=== PATIENT | male | born 2005 | race African-American/Black ===

== ENCOUNTER 2023-02-18 18:08 | Emergency (ER) | payer MEDICAID, SELFPAY ==
[2023-02-18] VITALS (11 sets, daily range): BP systolic 128–196; BP diastolic 57–100; PULSE 87–156; RESP 18–34; O2SAT 98–100
--- NOTE | 2023-02-18 | ECG_ITS ---
Measurements Intervals [place] Rate: 95 P: 60 ID: [id number] QRS: 70 QRSD: 91 T: 75 QT: 341 QTc: 430 Interpretive Statements SINUS RHYTHM NORMAL ECG NO PREVIOUS ECG AVAILABLE FOR COMPARISON Electronically Signed On 02-19-2023 6:24:55 CDT by Tank Sanchez D.O.
--- NOTE | ~2023-02-18 | CT_ITS ---
EXAMINATION: CT brain wo con DATE: 02/18/2023 19:05 INDICATION: Seizure. TECHNIQUE: Computed tomography (CT) of the head was performed without intravenous contrast. The mA wa s adjusted according to patient size. Iterative reconstruction technique was employed. The dose-lengt h product was 605.33 mGy-cm. COMPARISON: None FINDINGS: There is no intracranial hemorrhage, acute infarction, or abnormal intracranial mass lesion . The ventricles are normal in size. The orbits are normal. The paranasal sinuses are clear. The mast oid air cells are normal. There is cerumen in right external auditory canal. IMPRESSION: 1. Normal brain. Reviewed, dictated and finalized at location E. IMPRESSION: 1. Normal brain.
--- NOTE | ~2023-02-18 | XR_ITS ---
EXAMINATION: XR chest 1V DATE: 02/18/2023 19:06 INDICATION: Seizure. TECHNIQUE: A single frontal view of the chest was obtained. COMPARISON: None. FINDINGS: There is no pneumonia, pleural effusion, or pneumothorax. The heart size is normal. IMPRESSION: 1. No acute cardiopulmonary disease. Reviewed, dictated and finalized at location E.
--- NOTE | 2023-02-18 18:06 | ED.SEIZURE ---
HPI - Seizure General Chief Complaint: Seizure Stated Complaint: Seizure History of Present Illness HPI Narrative: Patient is a 17-year-old male presenting after a seizure. According to EMS he was with a friend when he had a jerking movement in his arms. At the time EMS arrived, this had resolved but he remained confused. He was able to answer a few questions. Shortly before arriving to the hospital he again had a seizure. They state it was generalized tonic-clonic. They gave him 2 mg of IV Versed which aborted the seizure. On arrival, the patient remains postictal. Airway is patent. Further history limited secondary to mental status. Related Data Allergies Allergy/AdvReac Type Severity Reaction Status Date / Time No Known Allergies Allergy Verified 02/18/23 18:51 Review of Systems Review of Systems: All systems reviewed & are unremarkable except as noted in HPI and below Exam Narrative: GENERAL: Unresponsive, protecting his airway HEAD: Normocephalic, atraumatic. EYES: PERRLA ENT: Nares clear, no rhinorrhea or epistaxis. Mucous membranes moist. NECK: Supple. CHEST: Clear to auscultation. No respiratory distress. HEART: tachycardic, regular rhythm ABDOMEN: Soft, nontender, nondistended EXTREMITIES: Normal range of motion. No edema. SKIN: Warm, dry, no rash. NEURO: Unresponsive, moving all extremities spontaneously, restless PSYCH: Unable to assess Course Vital Signs Vital signs: Vital Signs Pulse Rate 156 H 02/18/23 17:58 Respiratory Rate 34 H 02/18/23 17:58 Blood Pressure 196/100 H 02/18/23 17:58 Pulse Oximetry 100 02/18/23 17:58 Oxygen Delivery Room Air 02/18/23 17:58 Pulse Rate 95 02/18/23 22:17 Respiratory Rate 18 02/18/23 22:17 Blood Pressure 128/57 L 02/18/23 21:46 Pulse Oximetry 100 02/18/23 22:01 Oxygen Delivery Room Air 02/18/23 18:06 MDM - Seizure MDM Narrative Medical decision making narrative: Patient is a 17-year-old male presenting after a seizure. Patient initially tachycardic and hypertensive, this improved following fluids. Exam remarkable for the above. EKG per my interpretation shows normal sinus rhythm, no ST elevations or depressions. CT brain without acute abnormalities. Blood work with leukocytosis that I suspect is reactive, he denies any infectious symptoms. Electrolytes are normal but he does have an elevation in his creatinine. Fluids are ongoing. Spoke with [facility] neurologist Dr. Romero who recommends loading the patient with Keppra. Advises seizure precautions and outpatient follow-up with neurology. Discussed with the patient and his mother that he cannot drive until he follows up. Advised that he try to increase his fluid intake as he is very dry on his labs. He is receiving his second liter right now. He has returned to baseline and he denies any complaints at this time. Patient and his family are comfortable with this plan. Also advised that he follow-up with his PCP. Appropriate return precautions given. Discharged in stable condition. Differential Diagnosis Differential diagnosis: Likely focal seizure, generalized seizure and new onset seizure Medical Records Attestation: I reviewed the patient's medical records. Lab Data Attestation: I reviewed the patient's lab results. 02/18/23 18:50 02/18/23 18:50 Labs: Lab Results 02/18/23 02/18/23 Range/Units 18:50 20:16 WBC 20.7 H (4.5-10.0) K/mm3 RBC 5.95 (4.6-6.20) M/mm3 Hgb 16.5 (14.0-18.0) g/dL Hct 55.1 H (42.0-52.0) % MCV 92.6 (80-100) fl MCH 27.7 (26-34) pg MCHC 29.9 L (32-36) g/dl RDW 13.1 (11.5-14.5) % Plt Count 390 H (150-375) k/mm3 MPV 10.2 (7.4-10.4) fl Immature Gran % (Auto) Not Reportable Neut % (Auto) Not Reportable Lymph % (Auto) Not Reportable [place] % (Auto) Not Reportable Eos % (Auto) Not Reportable Baso % (Auto) Not Reportable Lymph # (Auto) Not Reporta
[2023-02-18] MEDS: LORazepam INJ (*CRX) 2 MG/ML VIAL 1 MG IV PUSH (18:12)
[2023-02-18] MEDS: SODIUM CHLORIDE 0.9% IV 1,000 ML 999 ML IV CONT ×2 (18:12→20:47)
[2023-02-18] MEDS: MIDAZOLAM HCL (*CRX) 2 MG/2 ML VIAL IV PUSH (18:41)
[2023-02-18 19:01] LABS: Hematocrit 55.1 % (42.0-52.0); Hemoglobin 16.5 g/dL (14.0-18.0); Mean Corpuscular HGB Conc 29.9 g/dl (32-36); Mean Corpuscular Hemoglobin 27.7 pg (26-34); Mean Corpuscular Volume 92.6 fl (80-100); Mean Platelet Volume 10.2 fl (7.4-10.4); Platelet Count Result 390 k/mm3 (150-375); Red Blood Count 5.95 M/mm3 (4.6-6.20); Red Cell Distribution Width 13.1 % (11.5-14.5); White Blood Count 20.7 K/mm3 (4.5-10.0)
[2023-02-18 19:11] LABS: Ethanol < 10 mg/dL (<10)
[2023-02-18 19:14] LABS: Alanine Aminotransferase 65 U/L (6-50); Albumin Level 5.8 g/dL (3.7-5.6); Alkaline Phosphatase 70 U/L (58-237); Aspartate Amino Transferase 53 U/L (17-59); Bilirubin,Total 0.6 mg/dL (0.2-1.3); Blood Urea Nitrogen 11 mg/dL (8-21); Calcium 9.5 mg/dL (8.9-10.7); Carbon Dioxide < 5 mmol/L (22-30); Chloride 98 mmol/L (98-107); Estimated Glomerular Filt Rate > 60; Glucose 250 mg/dL (65-110); Potassium 3.4 mmol/L (3.4-5.0); Sodium 141 mmol/L (134-143)
[2023-02-18 19:30] LABS: Lactic Acid Reflex > 24.0 mmol/L (0.7-2.0)
[2023-02-18 19:44] LABS: Atypical Lymphocytes Present; Band Neutrophils Percent 7 % (0-6); Lymphocytes Absolute Manual 7.24 K/mm3 (1.1-4.5); Monocytes Absolute Manual 1.03 K/mm3 (0.1-0.90); Monocytes Percent Manual 5 % (3-9); Neutrophils Absolute Manual 12.42 K/mm3 (1.3-6.7); Neutrophils Percent Manual 53 % (46-73); Total Cells Counted 100
[2023-02-18 19:45] LABS: Hypochromasia 1+ (NORMAL); Schistocytes None Seen (NORMAL)
[2023-02-18 20:43] LABS: Amphetamine Screen Urine Negative (Negative); Barbiturate Screen Urine Negative (Negative); Benzodiazepines Screen Urine Positive (Negative); Cannabinoid Screen Urine Positive (Negative); Cocaine Screen Urine Negative (Negative); Methadone Screen Urine Negative (Negative); Opiate Screen Urine Negative (Negative); Phencyclidine Screen Urine Negative (Negative)
[2023-02-18 21:03] LABS: Appearance Urine Clear (Clear); Bacteria Urine None Seen /hpf; Bilirubin Urine Negative (Negative); Blood Urine 2+ (Negative); Color Urine Yellow (Yellow); Glucose Urine UA 1+ mg/dL (Negative); Ketones Urine Trace mg/dL (Negative); Leukocyte Esterase Ur Negative LEU/UL (Negative); Need Manual Microscopic Reviewed; Nitrate Urine Negative (Negative); Protein Urine 1+ mg/dL (Negative); RBC Urine 0-2 /hpf (0-2); Specific Grav Ur 1.015 (1.001-1.035); Squamous Epithelial Cell Urine None seen /hpf (Few); Urobilinogen Urine 0.2 mg/dL (<2.0); WBC Urine 0-5 /hpf
[2023-02-18 21:04] LABS: Add Urine Microscopic? YES
[2023-02-18 21:59] LABS: Reflex Lactic Acid Yes or No Add Lactic
== END 2023-02-18 22:43 | disposition home or self-care (01) ==
PROVIDERS: Emergency Provider Emergency Medicine
DX: R56.9 Unspecified convulsions (principal)
CPT/HCPCS: 36415; 70450; 71045; 80053; 80307; 81001; 83605; 85025; 93005; 96361; 96374; 96375; 99284; J1953; J2060; J2250; J7030

== ENCOUNTER 2023-04-21 21:40 | Emergency (ER) | payer MEDICAID, SELFPAY ==
[2023-04-21 21:42] VITALS: BP 170/82; PULSE 102; RESP 17; TEMP 36.9; O2SAT 99
[2023-04-21 21:52] VITALS: BP 149/82; PULSE 109; PULSE 111; RESP 15; TEMP 37.1; O2SAT 100
--- NOTE | 2023-04-21 21:52 | ECG_ITS ---
Measurements Intervals [place] Rate: 85 P: 21 ID: 144 QRS: -8 QRSD: 89 T: 28 QT: 343 QTc: 409 Interpretive Statements SINUS RHYTHM ST ELEVATION IN DIFFUSE LEADS- PROBABLY EARLY REPOLARIZATION ABNORMALITY BORDERLINE ECG COMPARED TO ECG 02/18/2023 20:37:38 NO SIGNIFICANT CHANGES Electronically Signed On 04-22-2023 6:18:05 [employer]TERN [employer] by Tank Sanchez D.O.
[2023-04-21 22:01] LABS: Basophils Absolute Auto 0.1 K/mm3 (0.0-0.1); Basophils Percent Auto 0.7 % (0.2-1.2); Eosinophils Absolute Auto 0.1 K/mm3 (0-0.3); Eosinophils Percent Auto 0.8 % (0-4.4); Hematocrit 53.2 % (42.0-52.0); Hemoglobin 16.5 g/dL (14.0-18.0); Immature Granulocyte Absolute 0.12 K/mm3 (0.00-0.031); Lymphocytes Percent Auto 40.2 % (18.3-44.2); Mean Corpuscular Hemoglobin 27.5 pg (26-34); Mean Corpuscular Volume 88.5 fl (80-100); Mean Platelet Volume 9.8 fl (7.4-10.4); Monocytes Absolute Auto 0.8 K/mm3 (0.1-0.6); Monocytes Percent Auto 6.4 % (2.6-8.5); Neutrophils Percent Auto 50.9 % (45.5-73.1); Platelet Count Result 380 k/mm3 (150-375); Red Blood Count 6.01 M/mm3 (4.6-6.20); Red Cell Distribution Width 13.6 % (11.5-14.5); White Blood Count 11.7 K/mm3 (4.5-10.0)
[2023-04-21] MEDS: SODIUM CHLORIDE 0.9% IV 1,000 ML 999 ML IV CONT ×2 (22:11→23:19)
[2023-04-21] MEDS: ONDANSETRON INJ 4 MG/2 ML VIAL IV PUSH (22:12)
[2023-04-21] MEDS: levETIRAcetam 1000MG/NACL100ML 1,000 MG/100 ML BAG 400 MG IVPB (22:13)
[2023-04-21 22:17] VITALS: BP 111/74; PULSE 90; RESP 14; O2SAT 99
[2023-04-21 22:25] LABS: Alanine Aminotransferase 63 U/L (6-50); Albumin Level 5.9 g/dL (3.7-5.6); Alkaline Phosphatase 59 U/L (58-237); Anion Gap 32 mmol/L (8-16); Aspartate Amino Transferase 45 U/L (17-59); Bilirubin,Total 0.8 mg/dL (0.2-1.3); Blood Urea Nitrogen 13 mg/dL (8-21); Calcium 10.2 mg/dL (8.9-10.7); Carbon Dioxide 11 mmol/L (22-30); Chloride 97 mmol/L (98-107); Estimated CRCL calculation 78 ml/min; Estimated Glomerular Filt Rate > 60; Glucose 148 mg/dL (65-110); Potassium 4.3 mmol/L (3.4-5.0); Sodium 140 mmol/L (134-143)
--- NOTE | 2023-04-21 23:07 | ED.GENADULT ---
HPI - General Adult General Chief complaint: Seizure Stated complaint: seizure Time Seen by Provider: 04/21/23 21:47 History of Present Illness HPI narrative: patient brought to the emergency department by his girlfriend and mother after a seizure. Patient had a seizure a few months ago. He is scheduled to follow-up with neurology next week. He had been on Keppra twice a day but his prescription had run low. He had been taking them less than was prescribed. Patient had brief generalized seizure and was drowsy afterwards. He is now alert and oriented although still feels tired. patient's girlfriend and her mother contributes to the history Related Data Allergies Allergy/AdvReac Type Severity Reaction Status Date / Time No Known Allergies Allergy Verified 02/18/23 18:51 Review of Systems Review of Systems: Negative except for as documented in the HPI Exam Narrative: GENERAL: Well-appearing, well-nourished, and in no acute distress. HEAD: Normocephalic, atraumatic. EYES: PERRLA and EOMI. ENT: Nares clear, no rhinorrhea or epistaxis. Mucous membranes moist. NECK: Supple. CHEST: Clear to auscultation. No respiratory distress. HEART: Regular rate and rhythm. ABDOMEN: Soft, nontender, nondistended. EXTREMITIES: Normal range of motion. No edema. SKIN: Warm, dry, no rash. NEURO: No focal deficits. Alert and oriented x3. PSYCH: Normal mood and affect. Course Course Emergency Course: differential diagnosis includes most likely subtherapeutic Keppra, electrolyte abnormality, infection no other recent symptoms so most likely subtherapeutic Keppra. Patient is loaded. Vital Signs Vital signs: Vital Signs Temperature 36.9 C 04/21/23 21:42 Pulse Rate 102 H 04/21/23 21:42 Respiratory Rate 17 04/21/23 21:42 Blood Pressure 170/82 H 04/21/23 21:42 Pulse Oximetry 99 04/21/23 21:42 Oxygen Delivery Room Air 04/21/23 21:42 Temperature 37.1 C 04/21/23 21:52 Pulse Rate 79 04/22/23 00:18 Respiratory Rate 15 04/22/23 00:18 Blood Pressure 117/78 04/22/23 00:18 Pulse Oximetry 100 04/22/23 00:18 Oxygen Delivery Room Air 04/21/23 21:42 Medical Decision Making MDM Narrative Medical decision making narrative: Pt has not had any additional seizures. Lactate likely initially elevated based on anion gap. Now 2.9 after fluids. will d/c with [facility] and he has a neuro follow up next week Vital Signs Vital Signs: Vital Signs Temperature 36.9 C 04/21/23 21:42 Pulse Rate 102 H 04/21/23 21:42 Respiratory Rate 17 04/21/23 21:42 Blood Pressure 170/82 H 04/21/23 21:42 Pulse Oximetry 99 04/21/23 21:42 Oxygen Delivery Room Air 04/21/23 21:42 Temperature 37.1 C 04/21/23 21:52 Pulse Rate 79 04/22/23 00:18 Respiratory Rate 15 04/22/23 00:18 Blood Pressure 117/78 04/22/23 00:18 Pulse Oximetry 100 04/22/23 00:18 Oxygen Delivery Room Air 04/21/23 21:42 Lab Data 04/21/23 21:56 04/21/23 21:56 Labs: Lab Results 04/21/23 04/21/23 Range/Units 21:56 23:21 WBC 11.7 H (4.5-10.0) K/mm3 RBC 6.01 (4.6-6.20) M/mm3 Hgb 16.5 (14.0-18.0) g/dL Hct 53.2 H (42.0-52.0) % MCV 88.5 (80-100) fl MCH 27.5 (26-34) pg MCHC 31.0 L (32-36) g/dl RDW 13.6 (11.5-14.5) % Plt Count 380 H (150-375) k/mm3 MPV 9.8 (7.4-10.4) fl Immature Gran % (Auto) 1.0 H (0-0.5) % Neut % (Auto) 50.9 (45.5-73.1) % Lymph % (Auto) 40.2 (18.3-44.2) % [place] % (Auto) 6.4 (2.6-8.5) % Eos % (Auto) 0.8 (0-4.4) % Baso % (Auto) 0.7 (0.2-1.2) % Lymph # (Auto) 4.70 H (0.9-3.2) K/mm3 [place] # (Auto) 0.8 H (0.1-0.6) K/mm3 Eos # (Auto) 0.1 (0-0.3) K/mm3 Baso # (Auto) 0.1 (0.0-0.1) K/mm3 Abs Immat Gran (auto) 0.12 H (0.00-0.031) K/mm3 Absolute Neuts (auto) 6.0 (1.3-6.7) K/mm3 Absolute Nucleated RBC 0.0 (0.0-0.012) K/mm3 Nucleated RBC % 0.0 (0.0-0.2) % Sodium 140 (134-14
[2023-04-21 23:39] LABS: Lactic Acid Reflex 2.9 mmol/L (0.7-2.0)
[2023-04-22 00:18] VITALS: BP 117/78; PULSE 79; RESP 15; O2SAT 100
[2023-04-22 00:43] VITALS: BP 108/64; PULSE 80; RESP 16; O2SAT 100
[2023-04-22 02:23] LABS: Reflex Lactic Acid Yes or No Add Lactic
== END 2023-04-22 00:44 | disposition home or self-care (01) ==
PROVIDERS: Emergency Provider Emergency Medicine
DX: G40.909 Epilepsy, unspecified, not intractable, without status epilepticus (principal); T42.6X6A Underdosing of other antiepileptic and sedative-hypnotic drugs, initial encounter; Z91.128 Patient's intentional underdosing of medication regimen for other reason; R94.31 Abnormal electrocardiogram [ECG] [EKG]
CPT/HCPCS: 36415; 80053; 83605; 85025; 93005; 96361; 96374; 96375; 99284; J1953; J2405; J7030